=== PATIENT | male | born 1975 | race Caucasian/White ===

== ENCOUNTER 2020-10-05 23:43 | Inpatient (IN) | payer MEDICAID, SELFPAY ==
--- NOTE | 2020-10-05 01:00 | RAD_ITS ---
STUDY: X-RAY CHEST REASON FOR EXAM: Male, 45 years old. nausea and vomiting, cold symptoms for several days. TECHNIQUE: AP portable chest. 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 FINDINGS: Lungs are hyperinflated present previously. No focal infiltrates or effusions. No pneumothorax. Minimally elevated right hemidiaphragm. Normal size heart. Normal mediastinum and zach. Normal visualized pulmonary arteries. Normal visualized aortic arch and descending thoracic aorta. Normal visualized thoracic spine. Normal visualized ribs, clavicles, and shoulders. There is no demonstrated abnormality of the visualized soft tissue structures of the upper abdomen. RAD/Chest 1 View (Portable) IMPRESSION: No acute cardiopulmonary disease. Hyperinflation. Electronically Signed: Masood Tony MD at 2:04 EST , Service support ,
[2020-10-05 23:44] VITALS: BP 126/101; PULSE 106; RESP 17; TEMP 37.2; O2SAT 95; BMI 17.4
--- NOTE | 2020-10-05 23:53 | ED.DCSUM_ITS ---
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 Negative for: Blood streaks, Coffee ground, Hematemesis - Diarrhea/Melena/Hematochezia GI Symptom: - - last BM 2-3d ago; were normal then. Negative for: Diarrhea, Melena, Hematochezia Associated Symptoms: - - decreased UOP x 2d. Negative for: Dysuria, Frequency, Hematuria, Urgency Narrative: Patient presents with multitude of symptoms including abdominal pain with vomiting for several days, in addition to a cough productive occasionally of nondiscolored sputum without hemoptysis, subjective fevers/chills. He states he has felt a little short of breath today, but has a history of having had a partial lung resection due to displaced rib fracture related to trauma. He states he has had a laparotomy due to trauma as well and does not know everything that was done in his abdomen. When asked if he has had a bowel obstruction in the past, he thinks so. He denies having had COVID-19 this year that he knows of, nor has he had any known exposures to it. 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 Denies: Sweats Eyes: Denies: Visual changes - bilaterally, Diplopia ENT: Denies: Bilateral ear pain, Rhinorrhea, Sore throat Cardiovascular: Denies: Chest pain, Palpitations Respiratory: Reports: Dyspnea, Cough, Sputum. Denies: Orthopnea Gastrointestinal: Reports: Abdominal pain, Nausea, Vomiting. Denies: Diarrhea, Melena, Hematochezia Genitourinary: Denies: Dysuria, Hematuria, Frequency Musculoskeletal: Denies: Myalgias, Neck pain, Back pain, Swelling, Extremity Pain Skin: Denies: Rash, Wounds Neurological: Denies: Headache, Weakness, Numbness Physical Exam Vital Signs/Narrative: Vital Signs Temp Pulse Resp BP Pulse Ox 10/05/20 23:44 98.9 F 106 H 17 126/101 H 95 Inital Vital Signs reviewed: Yes General: Well nourished, Well developed, Cachectic, No Acute Distress Head: Normocephalic, Atraumatic Eyes: Perrl, EOMI ENT: No rhinorrhea, Dry mucous membranes Neck: Supple, Nontender, No lymphadenopathy Cardiovascular: Regular rate, Regular rhythm, No murmurs, Tachycardia - mild Respiratory: No distress, CTA bilaterally, Chest nontender Abdomen: Soft, Nondistended, Normal bowel sounds, No masses, Tender - diffusely. Negative for: Guarding, Rebound tenderness Back: Nontender, Normal Inspection. Negative for: CVA tenderness Extremities: Nontender, No edema. Negative for: Calf Tenderness Skin: Normal color, No rash, No Trauma Neurological: Alert, Oriented x3, Cranial nerves II-XII grossly intact, Normal Strength, Normal Sensation Psychological: Normal affect, Normal Mood Diagnostic/Tx/Re-eval - Rhythm Strip Rhythm Strip: Sinus Rhythm Rate: 90 Ectopy: None - EKG Initial EKG Interpretation: Sinus Rhythm, No Acute Injury Pattern, LAFB, - - motion artifact. Prior: No Prior - Medical Decision Making Radiologist called about CT, which indicates an acute small bowel obstruction with a transition point distally. We attempted to obtain the CT with IV contrast only, since patient had been vomiting quite a bit and he was thin, to enhance imaging interpretation. However, the IV which had been providing slow IV fluid without any issues infiltrated during the CT, and the entire bolus of contrast went into the soft tissues of the patient's right forearm. We put a hot compress on it, he said this felt better, I evaluated him his compartments of his forearm were soft, he has full range of motion throughout the elbow and wrist without any difficulty, paresthesias, or perfusion deficit. He does not have a compartment syndrome at this time. Unfortunately the patient did not indicate that there is any discomfort in his forearm until after the CT was completed. We decided to let radiology interpreted without the contrast, and luckily he was able to discern that there definitely is a bowel obstruction, but not necessarily whether the appendix is inflamed or not, given the streak artifact from his right hip hardware nearby. I am less suspicious that the patient has acute appendicitis, as his clinical picture does fit that of a small bowel obstruction. An NG tube was placed after pretreating the patient with Afrin and inhaled lidocaine, which helped with placement. In the ED over 300 cc of gastric fluid was withdrawn. Discussed with surgery Dr. Suazo. He will consult and request admit by medical team. Discussed with hospitalist. Since patient's IV blew, nurses attempted to put a new one in, attempting on external jugular's as well as peripheral extremity veins with no success. T herefore, after informed consent due to lack of access, central line was placed in the right subclavian vein without any complications. See the procedure note below. Procedures Procedure(s): Central line for access --patient was prepped and draped in a sterile fashion after informed consent, for triple lumen 16 cm catheter placement in the right subclavian vein. Modified Seldinger technique was used, after locally anesthetizing with a total of 4 cc of plain 1% lidocaine, finder needle found dark red nonpulsatile blood beneath the clavicle, guidewire was able to be passed without any resistance, and the triple-lumen catheter was placed over it. All 3 ports hero back dark red nonpulsatile blood and flushed easily. The catheter was sutured in place, a chlorhexidine disc was placed at the hub of the catheter against the skin, and chest x-ray confirmed good placement. ED Disposition - Plan for ED Patient: Disposition: Acute Care [facility] Diagnosis: Small bowel obstruction Referrals: Care Physician,No Primary [Primary Care Provider] -
[2020-10-06] VITALS (15 sets, daily range): BP systolic 105–137; BP diastolic 49–101; PULSE 59–110; RESP 16–24; TEMP 36.9–37.1; O2SAT 95–100; BMI 16.0; BMI 16.1
[2020-10-06] MEDS: 0.9% Normal Saline 1,000 ML 1000 ML IV (00:08)
[2020-10-06] MEDS: Ondansetron 4 MG/2 ML Vial IV (00:08)
[2020-10-06] MEDS: Morphine 4 MG/ML Syringe IV (00:08)
[2020-10-06 00:23] LABS: Absolute Lymphocyte Count 2.44 X10^3/uL (0.83-4.51); Absolute Neutrophil Count 8.2 X10^3/uL (2.0-7.7); Basophil# 0.09 X10^3/uL; Basophil% 0.7 % (0-1); Eosinophil# 0.07 X10^3/uL; Eosinophils% 0.6 % (0-5); Hematocrit 49.5 % (40-54); Hemoglobin 16.6 g/dL (13.0-16.5); Lymphocyte # 2.44 X10^3/ul (4.0); Lymphocyte % 19.9 % (19-41); Mean Corp Hgb Conc 33.5 g/dL (32-36); Mean Corpuscular Hgb 31.9 pg (27.0-32.0); Mean Corpuscular Volume 95.2 fL (80-94); Mean Platelet Vol. 9.4 fl (6.2-12.0); Monocyte# 1.43 X10^3/uL; Monocyte% 11.6 % (0-10); NRBC Flagged by Analyzer 0 % (0-5); Neutrophil # 8.22 X10^3/uL (2.7-7.7); Platelet Count 494 K/mm3 (150-450); RBC Distribution Width CV 13.3 % (11.6-14.6); RBC Distribution Width SD 46.7 fl (35.1-43.9); White Blood Count 12.3 K/mm3 (4.4-11.0)
[2020-10-06 00:43] LABS: ALB/GLOB Ratio 0.9 RATIO (0.9-2.4); AST(SGOT) 84 U/L (15-37); Alanine Aminotransfer ALT/SGPT 229 U/L (16-61); Albumin, Serum 4.4 g/dL (3.2-5.0); Alkaline Phosphatase 194 U/L (45-117); Anion Gap 9 (5-15); BUN 37 mg/dL (7-18); BUN/Creat Ratio 27.6 RATIO (10-20); Calcium,Total 9.3 mg/dL (8.5-10.1); Chloride 93 mmol/L (98-107); Creatinine, Serum 1.34 mg/dL (0.70-1.30); EST Glomerular Filtration Rate 61 mL/min (>60); Est Glom Filt Rate - Afr Amer 74 mL/min (>60); Glucose 129 mg/dL (74-106); Lipase 254 U/L (73-393); Potassium 3.7 mmol/L (3.5-5.1); Protein, Total 9.4 g/dL (6.4-8.2); Sodium Level 131 mmol/L (136-145)
--- NOTE | 2020-10-06 01:20 | NURSING ---
Pt returned from CT scan; mike reported to this RN that IV rt AC infiltrated with CT contrast. Hot pack placed on rt AC. Will monitor.
[2020-10-06] MEDS: Lidocaine 4% 5 ML Ampul 2 ML INHALATION (02:52)
[2020-10-06] MEDS: Oxymetazoline 0.05% 1 SPRAY SPRAY.BTL 2 SPRAY NASAL (02:53)
[2020-10-06] MEDS: Morphine 4 MG/ML Syringe SC (02:53)
--- NOTE | 2020-10-06 03:33 | HP.PCM_ITS ---
Problem List (1) Elevated LFTs Status: Acute (2) Acute kidney injury Status: Acute (3) Drug abuse Status: Chronic (4) Small bowel obstruction Status: Acute History of Present Illness Date of Admission: 10/06/20 Chief Complaint: Abdominal pain. The patient is a 45 year old M with past medical history as mentioned above presented to the emergency room because of abdominal pain. Her symptoms started 3 days ago with abdominal pain, mid abdominal pain, sharp pain, has been constant, 8 out of 10 in severity, not radiating, associated with nausea and vomiting and without aggravating or relieving factors. He mentioned that he has been passing flatus, last bowel movement was couple of days ago. He denied fever or chills. Apparently, he had a history of bowel obstruction in the past which was treated conservatively. He has history of trauma which ended up having partial lung resection due to displaced rib fracture as well as splenectomy back in 2012. In the emergency department, he was afebrile, slightly tachycardic, blood pressure stable, pulse ox is 96% on room air. Routine blood work was remarkable for mild leukocytosis, sodium of 131, BUN is 37, creatinine is 1.34. LFT was remarkable for bilirubin of 2.6, AST of 84 and ALT of 229, alk phos is 194. Troponin was negative. Lipase was normal. Blood alcohol level was 5. Chest x-ray showed hyperinflation, no acute findings. CT scan abdomen and pelvis with IV contrast revealed distal small bowel obstruction, small nonobstructing left kidney stone. Patient is being admitted for distal small bowel obstruction, acute kidney injury and elevated LFT. Past Medical History Past Medical History (Chronic Problems): Chronic Problems Drug abuse (Chronic) Allergies No Known Allergies Allergy (Verified 08/28/17 09:38) Home Medications: Ambulatory Orders Medication Instructions Recorded No Known/Unobtainable [No Known 08/28/17 Home Medications] Surgical History: - - Splenectomy as well as hip fracture repair in 2014 due to trauma; partial R pulm lobectomy Psychiatric History: No pertinent psych hx Lives: With Family Smoking Status: Current every day smoker Tobacco Use: Cigarettes Alcohol: None Drugs: Heroin, - - Amphetamines. - *Family History Maternal History Items: No pertinent history Paternal History Items: No pertinent history Review of Systems Constitutional: Reports: Anorexia. Denies: Chills, Fever, Weakness Eyes: Denies: Blurred vision, Double vision, Drainage, Redness HEENT: Denies: Difficulty Hearing, Dysphasia, Ear Pain, Eye Pain, Nasal Congestion, Sore Throat Cardiovascular: Denies: Chest Pain, Chest Pressure, Edema, Heaviness, Palpitations, Syncope Respiratory: Reports: Cough. Denies: Pleuritic Pain, Shortness of Breath, Sputum production, Wheezing Gastrointestinal: Reports: Abdominal Pain, Nausea, Vomiting. Denies: Constipation, Diarrhea, Melena Genitourinary: Denies: Dysuria, Frequency, Hematuria Musculoskeletal: Denies: Arm Pain, Back Pain, Foot Pain Skin: Denies: Dryness, Rash Neurological: Denies: Balance problems, Blurred vision, Double vision, Headaches, Incoordination Psychiatric: Denies: Anxiety, Depression Endocrine: Denies: Change in Body Habitus, Polydipsia, Polyuria VTE Information - Inpt Only VTE Present on Admission: No VTE Mechan Device Prophylaxis: None VTE Pharm Prophylaxis ordered?: No Patient Problems: Active and Suspected Problems Small bowel obstruction (Acute) - Physical Exam Vitals/I&O's: Vital Signs Temp Pulse Resp BP Pulse Ox 98.8 F 110 H 18 113/98 H 96 10/06/20 03:00 10/06/20 03:00 10/06/20 03:00 10/06/20 03:00 10/06/20 03:00 Oxygen Delivery Method Room Air Weight: 111 lb 8.862 oz Body Mass Index (BMI) 17.4 Intake and Output for Last 24 Hours 10/04/20 10/05/20 10/06/20 23:59 23:59 23:59 Output Total 200 / 200 Balance -200 / -200 General: Alert, Oriented x3, Cooperative, - - Cachectic. HEENT: Atraumatic, PERRLA, EOMI, Normocephalic Oral: Moist Mucosa, No Gingival or Mucosal Lesions/ Ulcerations Neck: Supple, No JVD, Negative Carotid Bruits, Trachea Midline, Thyroid Normal Size and Texture Lungs: Clear to auscultation, No wheeze, No rales, Diminished, Rhonchi Cardiovascular: Regular rate, Regular Rhythm, Normal S1, Normal S2, PMI Normal, Tachycardic Abdomen: Hypoactive Bowel Sounds, Distended, Tender, - - Minimal guarding, no rigidity. Extremities: No clubbing, No cyanosis, No edema Skin: No rashes, No breakdown Lymphatic: No Cervical, Supraclavicular, or Inguinal Adenopathy Neurological: Cranial nerves II-XII grossly intact, Motor Exam 5/5 strength throughout Psych/Mental Status: Appropriate, Flat Affect Microbiology Past 72 Hours 10/06/20 00:10 Mucosa - Nose SARS-CoV-2 Antigen (Rapid) - Final Laboratory Results 10/06/20 00:10: WBC 12.3 H, RBC 5.20, Hgb 16.6 H, Hct 49.5, MCV 95.2 H, MCH 31.9, MCHC 33.5, RDW Std Deviation 46.7 H, RDW Coeff of [place] 13.3, Plt Count 494 H, MPV 9.4, Immature Gran % (Auto) 0.200, Neut % (Auto) 67.0, Lymph % (Auto) 19.9, [place] % (Auto) 11.6 H, Eos % (Auto) 0.6, Baso % (Auto) 0.7, Absolute Neuts (auto) 8.2 H, Absolute Lymphs (auto) 2.44, Nucleated RBC % 0 10/06/20 00:10: Sodium 131 L, Potassium 3.7, Chloride 93 L, Carbon Dioxide 29.0, Anion Gap 9, BUN 37 H, Creatinine 1.34 H, Estim Creat Clear Calc 49.30, Est GFR (MDRD) Af Amer 74, Est GFR (MDRD) Non-Af 61, BUN/Creatinine Ratio 27.6 H, Glucose 129 H, Calcium 9.3, Total Bilirubin 2.60 H, AST 84 H, ALT 229 H, Alkaline Phosphatase 194 H, Troponin I < 0.015, Total Protein 9.4 H, Albumin 4.4, Globulin 5.0 H, Albumin/Globulin Ratio 0.9, Lipase 254 10/06/20 00:10: Ethyl Alcohol 5.0 Clinical Impression(s) from Imaging Studies Chest X-Ray 10/05/20 01:00 IMPRESSION: No acute cardiopulmonary disease. Hyperinflation. Electronically Signed: Masood Tony MD at 2:04 EST , Service support , Abdomen/Pelvis CT 10/06/20 23:50 IMPRESSION: Distal small bowel obstruction. Appendix not visualized. Status post splenectomy. Hyperinflation. Small nonobstructing left renal calculus. Additional nonemergent findings as above. N.B. : The above information has been verbally conveyed by Masood Tony MD to Naman Sam MD, on 10/06/2020 02:34:06 (ET). Electronically Signed: Masood Tony MD at 2:34 EST , Service support , ADDENDUM: 10/06/20 0241 IMPRESSION: Distal small bowel obstruction. Appendix not visualized. Status post splenectomy. Hyperinflation. Small nonobstructing left renal calculus. Additional nonemergent findings as above. N.B. : The above information has been verbally conveyed by Masood Tony MD to Naman Sam MD, on 10/06/2020 02:34:06 (ET). Electronically Signed: Masood Tony MD at 2:34 EST , Service support , Assessment/Plan All Active Problems Elevated LFTs (Acute) Acute kidney injury (Acute) Small bowel obstruction (Acute) This is a 45 years old male patient presented to the emergency room because of abdominal pain, with nausea and vomiting and he was found to have distal small bowel obstruction as well as acute kidney injury and elevated LFT. #1 distal small bowel obstruction: In context of history of bowel obstruction in the past few years ago. Patient had trauma that ended up having a splenectomy and partial lobectomy. CT scan abdomen and pelvis reviewed. Plan: Admit to [facility] floor, telemetry monitoring, keep on n.p.o., IV fluids, IV morphine as needed, IV Zofran and Phenergan as needed, IV Pepcid twice daily, replace electrolytes as appropriate, general surgery consult, repeat CBC and CMP tomorrow morning. #2 acute kidney injury/hyponatremia: Due to dehydration, nausea and vomiting as well as poor oral intake. Plan: IV fluids as above, input output chart, repeat BMP tomorrow morning. #3 elevated LFT: Bilirubin is 2.6, AST 84, ALT 229, alk phos is 194. No signi ficant tenderness on the right upper quadrant. CT scan revealed normal gallbladder. Plan: Ultrasound gallbladder. #4 drug abuse: Patient has been snorting heroin and amphetamines. He said he did not use for several days. #5 tobacco abuse: NicoDerm patch if desired. #6 DVT prophylaxis: Low risk patient, no prophylaxis indicated. This note was generated with [employer] dictation software. It may contain incorrect words, spelling, and punctuation that were not noted in checking the note before signing. Inpatient E&M: 59671 Init Hosp L3
--- NOTE | 2020-10-06 05:00 | RAD_ITS ---
STUDY: X-RAY - ABDOMEN/PELVIS REASON FOR EXAM: Male, 45 years old. Nasogastric tube placement. TECHNIQUE: AP supine upper abdomen. COMPARISON: August 29, 2017. CT abdomen and pelvis October 06, 2020. FINDINGS: Nasogastric tube tip in the left upper quadrant slightly below the left hemidiaphragm in the proximal gastric fundus. Right-sided central line tip in the superior vena cava. Dilated loops of small bowel compatible with a known small bowel obstruction. There is no demonstrated free abdominal air. The visualized liver, spleen and kidneys are grossly normal in size and morphology. Normal soft tissue structures. Normal visualized osseous structures. RAD/Abdomen Single View (Portable) IMPRESSION: Nasogastric tube tip in the proximal gastric fundus satisfactory for suctioning. Small bowel obstruction. Electronically Signed: Masood Tony MD at 5:56 EST , Service support ,
--- NOTE | 2020-10-06 05:07 | RAD_ITS ---
STUDY: X-RAY CHEST REASON FOR EXAM: Male, 45 years old. Line placement. TECHNIQUE: AP portable chest. COMPARISON: October 06, 2020 at 12:56 AM. Abdomen August 28, 2017. FINDINGS: Enteric tube tip below left hemidiaphragm and at least in the gastric fundus. Right-sided central line with the tip in the lower superior vena cava. No pneumothorax. Lungs are hyperinflated. No focal infiltrates or effusions. Blunting of the right costophrenic angle probably representing pleural scar. Normal size heart. Normal mediastinum and zach. Normal visualized pulmonary arteries. Normal visualized aortic arch and descending thoracic aorta. Normal visualized thoracic spine. Normal visualized ribs, clavicles, and shoulders. There is no demonstrated abnormality of the visualized soft tissue structures of the upper abdomen. RAD/CXR for Line Placement IMPRESSION: Support line and support tube in their expected locations. No pneumothorax. Hyperinflation. Electronically Signed: Masood Tony MD at 5:52 EST , Service support ,
--- NOTE | 2020-10-06 05:25 | NURSING ---
Per Gregorio CUNNINGHAM in ER: Triple lumen central line placed & it is ok to use per ER doc. NG placed & it is also ok to use.
--- NOTE | 2020-10-06 05:36 | US_ITS ---
STUDY: ABDOMINAL ULTRASOUND - RIGHT UPPER QUADRANT REASON FOR VISIT: Male, 45 years old ELEVATED LFTS TECHNIQUE: Ultrasound evaluation of the right upper quadrant was performed with real-time and static otoole-scale imaging. TECHNICAL QUALITY: Adequate. COMPARISON: None. FINDINGS: Liver: The liver measures 11.3 cm. There is normal echogenicity of the liver. The bile ducts are within normal limits. There is hepatic color flow. The direction of portal flow is hepatopetal. There is no demonstrated mass lesion. Gallbladder: Normal distended gallbladder. The gallbladder wall measures 3.0 mm. There is a negative sonographic Mcarthur''s sign. There is no pericholecystic fluid. There are no gallstones. Common Bile Duct (C.B.D.): The common bile duct measures 4 mm. Pancreas: There is nonvisualization of the pancreas due to overlying bowel gas. Right Kidney: Normal size of the right kidney. The right kidney measures 9.1 cm x 5 cm x 4.9 cm. Normal renal cortex. The right cortex measures 1.0 cm. There is no demonstrated renal mass or cyst. There is no right hydronephrosis. US/Gallbladder IMPRESSION: Normal right upper quadrant ultrasound examination. Electronically Signed: Abdulaziz Myles, at 8:20 EST , Service support ,
[2020-10-06] MEDS: Lactated Ringers 1,000 ML 100 ML IV ×2 (06:15→15:32)
[2020-10-06] MEDS: 0.9% Saline Lock 10 ML Syringe IV ×3 (06:26→21:31)
[2020-10-06] MEDS: Famotidine 200 MG/20 ML MDV 20 MG in 0.9% Normal Saline (Pres. free 8 ML 300 MG IV ×2 (06:26→21:31)
[2020-10-06] MEDS: Morphine 2 MG/ML Syringe IV ×4 (07:44→21:31)
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
[2020-10-06 12:01] LABS: Bacteria 0 SEEN /hpf (None Seen); Mucous, Urine 0 SEEN /hpf (<or=2+); Squamous Epithelial Cells - UA 0 SEEN /hpf (0-5)
--- NOTE | 2020-10-06 12:02 | NURSING ---
called sister Crystal and provided pt update. [phone]
[2020-10-06 12:16] LABS: Color, Urine Yellow (Yellow); Glucose, Dipstick Normal (Normal); Ketone-Dipstick 50 mg/dl (Negative); Leukocyte Esterase-Dipstick 25 /ul (Negative); Nitrite-Dipstick Negative (Negative); Occult Blood-Urine 150 /ul (Negative); Protein-Dipstick 30 mg/dl (Negative); Urine Clarity Clear (Clear); Urine Urobilinogen 1 mg/dl (Normal)
[2020-10-06 12:19] LABS: Red Blood Cells-Urine 5-10 SEEN /hpf (0-5); Urine Bilirubin Dipstick 1 mg/dL (Negative); White Blood Cells 0-5 SEEN /hpf (0-5)
--- NOTE | 2020-10-06 12:30 | CASEMGMT ---
OCTAVIO GILLIAM assessment: Face to Face with patient for initial transition planning/care coordination assessment. OCTAVIO GILLIAM introduced self and role at [facility], pt voices understanding and consents to assessment at this time but is lying in bed with sheet over his head. Pt is in no distress at this time. Pt is A/Ox4 at this time and answers all questions appropriately at this time. Care providers, pharmacy, and demographics verified at this time. Presentation: Pt feeling unwell for several days w/ n/v and cold sx Admitting dx: distal small bowel obstruction, TAMARA PCP: Pt states does not have PCP and declines PCP list at this time. Specialists: Pt states no current specialists. Preferred Pharmacy: [facility] Insurance: [employer] 360 Prescription Benefit: [employer] Living Will/HPOA: Pt states does not have LW/HPOA and declines AD info at this time. LNOK: Estiven Fisher, father Living Arrangements: Pt states lives with father in 1 story home and states no concerns at home at this time. Pt states is independent with ADL's. Transportation: Pt states does not drives but states no transportation concerns at this time. Pt states family/friends drive him. DME/HHC: Pt states no current DME or need for any at this time. Pt states no hx HHC or SNF in the past. Pt states no concerns with going home at time of discharge. Pt states is on disability. Pt states smokes about a pack of cigarettes daily and does not drink ETOH. Pt states does use meth/heroin and last used several days ago. Pt declines to speak with anyone or to get any resources for his drug abuse at this time. Pt states no further concerns/needs at this time. CM to follow for any further discharge planning/needs. Advised pt to ask for CM if any further questions/concerns/needs arise, voices understanding. Pt Goal: Home Plan[place] OCTAVIO GILLIAM
--- NOTE | 2020-10-06 12:57 | NT.THERAPY_ITS ---
Nutrition Therapy Report - History Nutrition Services has been consulted to:: Manage nutrient details of diet order Current diet / nutrition support order:: NPO x day #1 today except ice chips and candy - Anthropometric Measurements Height:: 5 ft 7 in Weight:: 46.5 kg Body Mass Index (BMI):: 16.0 - Relevant Labs Relevant Labs:: WBC 12.3 K/mm3 (4.4-11.0) H 10/06/20 00:10 Hgb 16.6 g/dL (13.0-16.5) H 10/06/20 00:10 MCV 95.2 fL (80-94) H 10/06/20 00:10 RDW Std Deviation 46.7 fl (35.1-43.9) H 10/06/20 00:10 Plt Count 494 K/mm3 (150-450) H 10/06/20 00:10 [place] % (Auto) 11.6 % (0-10) H 10/06/20 00:10 Absolute Neuts (auto) 8.2 X10^3/uL (2.0-7.7) H 10/06/20 00:10 Sodium 131 mmol/L (136-145) L 10/06/20 00:10 Chloride 93 mmol/L (98-107) L 10/06/20 00:10 BUN 37 mg/dL (7-18) H 10/06/20 00:10 Creatinine 1.34 mg/dL (0.70-1.30) H 10/06/20 00:10 BUN/Creatinine Ratio 27.6 RATIO (10-20) H 10/06/20 00:10 Glucose 129 mg/dL (74-106) H 10/06/20 00:10 Total Bilirubin 2.60 mg/dL (0.20-1.00) H 10/06/20 00:10 AST 84 U/L (15-37) H 10/06/20 00:10 ALT 229 U/L (16-61) H 10/06/20 00:10 Alkaline Phosphatase 194 U/L (45-117) H 10/06/20 00:10 Total Protein 9.4 g/dL (6.4-8.2) H 10/06/20 00:10 Globulin 5.0 g/dL (2.2-4.2) H 10/06/20 00:10 - Assessment Food / Nutrition-Related History:: Pt difficult to interview and not co- operative with answering questions. 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 Wt loss is significant~6-7% down x past 2-4 weeks in addition to poor intake and BMI 16.1. Unable to perforn NFPA due to pt all covered up and unwilling to co-operate. 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 Evidence of Malnutrition Exists:: Yes Severe PCM:: Acute Illness - Nutrition Intervention Nutrition Prescription:: Estimated nutrition needs for repletion~7868-6483 kcal and ~60-70 gm protein per day. - Food / Nutrient Delivery Interventions Summary of nutrition intervention:: Pt currently NPO but, will require oral nutr ition supplements as diet advanced; consider parenteral nutrition support in view of malnutrition criteria if unable to advance diet in 24-48 hours. Nutrition support ordered as / adjusted to:: No nutrition support at this time; consider Parenteral Nutrition Support if unable to advance PO nutrition in next 24-48 hours. Nutrition education provided?: No - pt unwilling - MNT Monitoring Further MNT monitoring and evaluation required?: Yes MNT Follow-up in:: 3-5 days
--- NOTE | 2020-10-06 13:38 | CASEMGMT ---
Social Work SW met with pt in room to discuss substance abuse. Pt head covered in blankets upon entrance but pt willing to sit up in bed and speak with SW. Pt states he is disabled and lives with his father, brother and sister. Pt states he also has a son who is 21 and lives in the home now and then. Pt stating he can care for himself and although he does not drive, he has no problem finding transportation when needed. SW inquired about alcohol uses and pt denies any alcohol use. SW then inquired about drug use. Pt confirms he uses heroin and meth daily with last use a day prior to admission. Pt denies using a recovery programs in the past. Pt stating he wants to stop using drugs, he realizes they are not good for him, use up his money and mess with his head. Pt informing this worker he [facility] and he would like to change his drug use habits. Pt stating he would like his son to quite as well and that he needs to lead by example. SW offered assistance with finding a program to assist with cessation and pt adamantly denies need for assistance. SW attempted to review with pt need for support and assistance to deal with addiction and pt continues to deny stating he watched his friends go through rehab and start using as soon as they came out. SW again attempted to educate that sometimes recovery requires multiple attempts with rehab. Pt plans to stop using heroin and meth on his own and does not feel as though he will benefit from assistance. SW offered resources on rehabilitation programs and pt did accept them but denies SW make appointment for him with a program. Pt denies any further SW needs at this time. GHAZALA Hill
--- NOTE | 2020-10-06 23:50 | CT_ITS ---
STUDY: CT ABDOMEN AND PELVIS WITH CONTRAST REASON FOR EXAM: Male, 45 years old. Diffuse abdominal pain. Fever and chills for several days. Nausea and vomiting. History of lung cancer. RADIATION DOSAGE (If Supplied By Facility): CTDIvol = ( 16.23 ) mGy, DLP = ( 302.70 ) mGycm TECHNIQUE: Transaxial images were obtained from the dome of the diaphragm to the symphysis pubis without oral contrast. IV 20mL Isovue-370 was administered. Sagittal and coronal images were reconstructed. As per discussion with referring clinician there was infiltration of the intravenous access resulting in limited intravenous contrast for this study. Individualized dose optimization techniques were used for this CT. COMPARISON: August 28, 2017. FINDINGS: The lungs are hyperinflated. The visualized portions of the heart are within normal limits. Normal liver. Normal gallbladder and extrahepatic biliary system. Spleen absent compatible with history of splenectomy. Normal pancreas. Normal bilateral adrenal glands. Normal right kidney. 2 mm nonobstructing left renal calculus. Evaluation of solid organs is limited without optimal intravenous contrast. Normal visualized stomach. Fluid-filled loops of small bowel some dilated to 3.9 cm compatible with a distal small bowel obstruction. Transition zone right hemipelvis. Normal colon. Appendix is not definitively identified. Streak artifact in the pelvis as well as lack of oral contrast limits evaluation of the bowel. Normal abdominal aorta. Normal inferior vena cava. Normal retroperitoneum. No intra-abdominal free air. Normal urinary bladder. Prostate gland is not enlarged. Normal abdominal wall. Postoperative changes of ORIF old pelvic fractures. Multihole plate and screws right hemipelvis. Intramedullary tung and compression screw right femur. Heterotopic bone formation right hip. Transversely oriented screws left sacroiliac joint. Old fracture right inferior pubic ramus. Old right posterior inferior rib fracture. CT/Abdomen/Pelvis W IV Cont ONLY IMPRESSION: Distal small bowel obstruction. Appendix not visualized. Status post splenectomy. Hyperinflation. Small nonobstructing left renal calculus. Additional nonemergent findings as above. N.B. : The above information has been verbally conveyed by Masood Tony MD to Naman Sam MD, on 10/06/2020 02:34:06 (ET). Electronically Signed: Masood Tony MD at 2:34 EST , Service support ,
[2020-10-07] VITALS (8 sets, daily range): BP systolic 103–112; BP diastolic 61–66; PULSE 60–81; RESP 18; TEMP 36.6–37; O2SAT 96–99
[2020-10-07] MEDS: Morphine 2 MG/ML Syringe IV (00:33)
[2020-10-07] MEDS: Lactated Ringers 1,000 ML 100 ML IV (00:37)
--- NOTE | 2020-10-07 01:59 | NURSING ---
covid 19 emergency charting in effect.
[2020-10-07 05:45] LABS: Absolute Lymphocyte Count 2.47 X10^3/uL (0.83-4.51); Absolute Neutrophil Count 2.5 X10^3/uL (2.0-7.7); Basophil# 0.03 X10^3/uL; Basophil% 0.5 % (0-1); Eosinophil# 0.03 X10^3/uL; Eosinophils% 0.5 % (0-5); Hematocrit 38.3 % (40-54); Lymphocyte # 2.47 X10^3/ul (4.0); Lymphocyte % 39.6 % (19-41); Mean Corp Hgb Conc 33.9 g/dL (32-36); Mean Corpuscular Hgb 31.3 pg (27.0-32.0); Mean Corpuscular Volume 92.1 fL (80-94); Mean Platelet Vol. 9.3 fl (6.2-12.0); Monocyte# 1.18 X10^3/uL; Monocyte% 18.9 % (0-10); NRBC Flagged by Analyzer 0 % (0-5); Neutrophil # 2.51 X10^3/uL (2.7-7.7); Neutrophil % 40.3 % (47-70); Platelet Count 382 K/mm3 (150-450); RBC Distribution Width CV 12.9 % (11.6-14.6); RBC Distribution Width SD 43.8 fl (35.1-43.9); Red Blood Count 4.16 M/mm3 (4.6-6.2); White Blood Count 6.2 K/mm3 (4.4-11.0)
[2020-10-07 06:33] LABS: ALB/GLOB Ratio 0.8 RATIO (0.9-2.4); AST(SGOT) 54 U/L (15-37); Alanine Aminotransfer ALT/SGPT 125 U/L (16-61); Albumin, Serum 3.1 g/dL (3.2-5.0); Alkaline Phosphatase 122 U/L (45-117); Anion Gap 7 (5-15); BUN 23 mg/dL (7-18); BUN/Creat Ratio 42.1 RATIO (10-20); Calcium,Total 8.3 mg/dL (8.5-10.1); Chloride 101 mmol/L (98-107); Creatinine, Serum 0.55 mg/dL (0.70-1.30); EST Glomerular Filtration Rate 172 mL/min (>60); Estimated Creatinine Clearance 110.38 ml/min; Globulin 3.8 g/dL (2.2-4.2); Glucose 95 mg/dL (74-106); Potassium 4.1 mmol/L (3.5-5.1); Protein, Total 6.9 g/dL (6.4-8.2); Sodium Level 133 mmol/L (136-145)
[2020-10-07 06:34] LABS: Est Glom Filt Rate - Afr Amer 208 mL/min (>60)
--- NOTE | 2020-10-07 07:45 | PCM.PN.HOSP ---
Patient Problems: Active and Suspected Problems Elevated LFTs (Acute) Acute kidney injury (Acute) Small bowel obstruction (Acute) Subjective: Patient laying in the medical surgical bed, notes overnight he did have continued onset flatus and bowel movement x2 with improvement of his abdominal discomfort. Patient eager for initiation of clears this morning and following discussions with general surgery allowed. Patient denies fevers, chills, nausea, emesis, worsened abdominal pain, chest pain or dyspnea. Objective: Physical Examination: General: awake, alert, oriented x 3 and cooperative, seated upright in the medical surgical bed, no acute distress, notes improved. Skin: normal color, turgor, no icterus, cyanosis. HEENT: AT/NC, EOMI, PERRLA, moderately dry MM. Lungs: Diminished breath sounds, greater bases, moderate effort, no rales, ronchi or wheezing. Heart: Regular rate and rhythm; no gallop, rub audible. Abdomen: soft, cachectic habitus, improved abdominal exam with normalizing bowel sounds, no significant tenderness palpation, nondistended. Extremities: no cyanosis, clubbing, or edema. Neurological: patient awake, alert, oriented as noted; cognitive function intact; pupils equally reactive to light and accomodation; cranial nerves II-XII grossly normal, moving all 4 extremities, no focal deficits, strength improved, moderately global decreased. Psychiatric: affect appears fatigued otherwise normal, no acute evidence of depressive or anxiety feelings. Vitals/I&O's: Vital Signs Temp Pulse Resp BP Pulse Ox 98.6 F 64 18 112/66 96 10/07/20 03:32 10/07/20 04:00 10/07/20 03:32 10/07/20 03:32 10/07/20 07:27 Oxygen Delivery Method Room Air Weight: 102 lb 8.239 oz Body Mass Index (BMI) 16.0 Intake and Output for Last 24 Hours 10/05/20 10/06/20 10/07/20 23:59 23:59 23:59 Intake Total 1994. / 1308.33 / 1308.33 Output Total 350 / 350 Balance 1645.00 / 1645.00 1308.33 / 1308.33 Microbiology Past 72 Hours 10/06/20 00:10 Mucosa - Nose SARS-CoV-2 Antigen (Rapid) - Final Laboratory Results 10/06/20 11:50: Urine Color Yellow, Urine Clarity Clear, Urine pH 5.0, Ur Specific [place] 1.020, Urine Protein 30 H, Urine Glucose (UA) Normal, Urine Ketones 50 H, Urine Occult Blood 150 H, Urine Nitrite Negative, Urine Bilirubin 1 H, Urine Urobilinogen 1 H, Ur Leukocyte Esterase 25 H, Urine RBC 5-10 SEEN, Urine WBC 0-5 SEEN, Ur Squamous Epith Cells 0 SEEN, Urine Bacteria 0 SEEN, Urine Mucus 0 SEEN 10/07/20 05:30: WBC 6.2, RBC 4.16 L, Hgb 13.0, Hct 38.3 L, MCV 92.1, MCH 31.3, MCHC 33.9, RDW Std Deviation 43.8, RDW Coeff of [place] 12.9, Plt Count 382, MPV 9.3, Immature Gran % (Auto) 0.200, Neut % (Auto) 40.3 L, Lymph % (Auto) 39.6, [place] % (Auto) 18.9 H, Eos % (Auto) 0.5, Baso % (Auto) 0.5, Absolute Neuts (auto) 2.5, Absolute Lymphs (auto) 2.47, Nucleated RBC % 0 10/07/20 05:30: Sodium 133 L, Potassium 4.1, Chloride 101, Carbon Dioxide 25.0, Anion Gap 7, BUN 23 H, Creatinine 0.55 L, Estim Creat Clear Calc 110.38, Est GFR (MDRD) Af Amer 208, Est GFR (MDRD) Non-Af 172, BUN/Creatinine Ratio 42.1 H, Glucose 95, Calcium 8.3 L, Total Bilirubin 2.60 H, AST 54 H, ALT 125 H, Alkaline Phosphatase 122 H, Total Protein 6.9, Albumin 3.1 L, Globulin 3.8, Albumin/Globulin Ratio 0.8 L Current Medications Lactated Ringer's () 1,000 mls @ 100 mls/hr IV .Q10H [facility] Last Admin: 10/07/20 00:37 Dose: 100 mls/hr Documented by: Famotidine 20 mg/ Sodium (Chloride) 10 mls @ 300 mls/hr IV Q12 [facility] Last Infusion: 10/06/20 21:39 Dose: Infused Documented by: Sodium Chloride () 250 mls @ 15 mls/hr IV .[id number] PRN PRN Reason: Saline Flush Sodium Chloride () 250 mls @ 15 mls/hr IV .[id number] PRN PRN Reason: Additional IVPB Infusion Morphine Sulfate (Morphine 2 Mg/Ml Syringe) 2 mg IV Q3H PRN PRN PRN Reason: Pain Score 6-10 Last Admin: 10/07/20 00:33 Dose: 2 mg Documented by: Ondansetron HCl (Ondansetron 4 Mg/2 Ml Vial) 4 mg IV Q8H PRN PRN PRN Reason: NAUSEA/VOMITING Promethazine HCl (Promethazine 25 Mg/Ml Syringe) 6.25 mg IV Q6H PRN PRN PRN Reason: NAUSEA/VOMITING Sodium Chloride (0.9% Saline Lock 10 Ml Syringe) 10 - 40 ml IV UD PRN PRN Reason: SALINE FLUSH Last Admin: 10/06/20 21:31 Dose: 10 ml Documented by: NATI Vital Signs/Narrative: Vital Signs Pulse Pulse Ox 10/07/20 07:27 96 10/07/20 04:00 64 Medical Necessity - Tobacco Use Smoking Status: Current every day smoker Tobacco Use: Cigarettes Assessment/Plan All Active Problems Elevated LFTs (Acute) Acute kidney injury (Acute) Small bowel obstruction (Acute) The patient is a 45 y/o M w/ PMHx: Hx Polysubstance abuse (Heroin, amphetamines), Tobacco use, Chronic severe protein calorie malnutrition, Chronically elevated LFTs with suspected underlying Hepatitis C who presented to the [facility] ED on 10/06/20 with 3 days of worsening mid abdominal discomfort, sharp, constant, 8 out of 10 with associated nausea, emesis and abdominal distention. 1. Abdominal pain, nausea, emesis secondary to acute distal small bowel obstruction: Initial ED evaluation with evidence of small bowel obstruction, follow-up CT with distal small bowel obstruction verified, patient admitted to medical surgical floor, general surgery consulted, initially maintained n.p.o. status on IV famotidine with bowel rest, as needed pain and antiemetic regimen, 10/06/2020 evening had onset of bowel movements and flatus, 10/07/2020 per surgery clearance allowance of initiation of diet with advancement given clinical resolution of bowel obstruction. If patient able to tolerate transition from clears to full liquids with plan discharge to home with slow diet advancement with PCP follow-up. 2. Acute on chronic elevated LFTs, improving: Admission total bilirubin 2.60, AST/ALT 84/229, follow-up improving with AST/ALT 54/125, unremarkable right upper quadrant gallbladder ultrasound, CT abdomen and pelvis as noted with no acute liver findings, likely secondary to underlying hepatitis C given polysubstance abuse, declined testing once discussed, encourage continued outpatient follow-up with PCP as suspected underlying history. 3. Hyponatremia, mild, hypovolemic: Patient sodium 131, likely secondary to hypovolemia with GI losses secondary to #1, judiciously hydrated, repeat improving, encourage continued appropriate oral intake at discharge with follow-up labs with outpatient PCP follow-up. 4. Polysubstance abuse: Patient with heroin and amphetamine usage, encouraged clean status, encourage consideration for acute withdrawal treatment, complicates presentation given pain medication usage, given resolution will discontinue IV narcotic therapy, at discharge will defer oral usage given resolution, encouraged allowance of HIV and hepatitis panel. 5. Tobacco Abuse: Encouraged cessation, inpatient consultation per RT, NR if desired. 6. DVT prophylaxis: Low risk for admission hospitalist, not on chemoprophylaxis. Inpatient E&M: [id number] Subs Hosp L2
--- NOTE | 2020-10-07 08:59 | PCM.PN.SRG ---
Patient Problems: Active and Suspected Problems Elevated LFTs (Acute) Acute kidney injury (Acute) Small bowel obstruction (Acute) Subjective: Patient had a large bowel movement. Abdomen feels much better. Objective: Diminished soft nondistended - Physical Exam Vitals/I&O's: Vital Signs Temp Pulse Resp BP Pulse Ox 98.6 F 64 18 112/66 96 10/07/20 03:32 10/07/20 04:00 10/07/20 03:32 10/07/20 03:32 10/07/20 07:27 Oxygen Delivery Method Room Air Weight: 102 lb 8.239 oz Body Mass Index (BMI) 16.0 Intake and Output for Last 24 Hours 10/05/20 10/06/20 10/07/20 23:59 23:59 23:59 Intake Total 1994. / 1308.33 / 1308.33 Output Total 350 / 350 Balance 1645.00 / 1645.00 1308.33 / 1308.33 Microbiology Past 72 Hours 10/06/20 00:10 Mucosa - Nose SARS-CoV-2 Antigen (Rapid) - Final Laboratory Results 10/06/20 11:50: Urine Color Yellow, Urine Clarity Clear, Urine pH 5.0, Ur Specific [place] 1.020, Urine Protein 30 H, Urine Glucose (UA) Normal, Urine Ketones 50 H, Urine Occult Blood 150 H, Urine Nitrite Negative, Urine Bilirubin 1 H, Urine Urobilinogen 1 H, Ur Leukocyte Esterase 25 H, Urine RBC 5-10 SEEN, Urine WBC 0-5 SEEN, Ur Squamous Epith Cells 0 SEEN, Urine Bacteria 0 SEEN, Urine Mucus 0 SEEN 10/07/20 05:30: WBC 6.2, RBC 4.16 L, Hgb 13.0, Hct 38.3 L, MCV 92.1, MCH 31.3, MCHC 33.9, RDW Std Deviation 43.8, RDW Coeff of [place] 12.9, Plt Count 382, MPV 9.3, Immature Gran % (Auto) 0.200, Neut % (Auto) 40.3 L, Lymph % (Auto) 39.6, [place] % (Auto) 18.9 H, Eos % (Auto) 0.5, Baso % (Auto) 0.5, Absolute Neuts (auto) 2.5, Absolute Lymphs (auto) 2.47, Nucleated RBC % 0 10/07/20 05:30: Sodium 133 L, Potassium 4.1, Chloride 101, Carbon Dioxide 25.0, Anion Gap 7, BUN 23 H, Creatinine 0.55 L, Estim Creat Clear Calc 110.38, Est GFR (MDRD) Af Amer 208, Est GFR (MDRD) Non-Af 172, BUN/Creatinine Ratio 42.1 H, Glucose 95, Calcium 8.3 L, Total Bilirubin 2.60 H, AST 54 H, ALT 125 H, Alkaline Phosphatase 122 H, Total Protein 6.9, Albumin 3.1 L, Globulin 3.8, Albumin/Globulin Ratio 0.8 L Current Medications Famotidine (Famotidine 20 Mg Tablet) 20 mg PO BID JEFFREY Lactated Ringer's () 1,000 mls @ 100 mls/hr IV .Q10H JEFFREY Last Admin: 10/07/20 00:37 Dose: 100 mls/hr Documented by: Sodium Chloride () 250 mls @ 15 mls/hr IV .[id number] PRN PRN Reason: Saline Flush Sodium Chloride () 250 mls @ 15 mls/hr IV .[id number] PRN PRN Reason: Additional IVPB Infusion Morphine Sulfate (Morphine 2 Mg/Ml Syringe) 2 mg IV Q3H PRN PRN PRN Reason: Pain Score 6-10 Last Admin: 10/07/20 00:33 Dose: 2 mg Documented by: Ondansetron HCl (Ondansetron 4 Mg/2 Ml Vial) 4 mg IV Q8H PRN PRN PRN Reason: NAUSEA/VOMITING Promethazine HCl (Promethazine 25 Mg/Ml Syringe) 6.25 mg IV Q6H PRN PRN PRN Reason: NAUSEA/VOMITING Sodium Chloride (0.9% Saline Lock 10 Ml Syringe) 10 - 40 ml IV UD PRN PRN Reason: SALINE FLUSH Last Admin: 10/06/20 21:31 Dose: 10 ml Documented by: Medical Necessity - Tobacco Use Smoking Status: Current every day smoker Tobacco Use: Cigarettes Assessment/Plan All Active Problems Elevated LFTs (Acute) Acute kidney injury (Acute) Small bowel obstruction (Acute) Okay to be discharged from surgery standpoint He can follow-up with his primary care doctor
--- NOTE | 2020-10-07 09:29 | DCINST_ITS ---
- Discharge Diagnoses Current Active Problems: Current Active and Chronic Problems Acute Small Bowel Obstruction Elevated LFTs, acute on chronic secondary to #1 TAMARA secondary to #1 Acute Hyponatremia, mild, secondary to #1, hypovolemic History of Polysubstance abuse, possible Hepatitis C Severe Protein Calorie Malnutrition Tobacco use You will use the following diet at home:: Other - Advise continued clears to full liquids over the course of the next 24 to 48 hours and slow advancement to regular diet. Advise low fat/low sugar intake. Discharge Activity: Return to Normal Activity - Encourage routine activity and movement to assist with bowel movement. Call your doctor if you observe: Fever of 101 or Higher, Inability to urinate, Inability to have a bowel movement, Shortness of breath, Dizziness, Fainting spells, Chest pain, Uncontrolled pain Instructions: Small Bowel Obstruction Additional Instructions: Strongly recommend avoidance of any routine opiate usage as this will contribute greatly to constipation. Maintain appropriate healthy water intake as well. Allergies/Adverse Reactions: Allergies No Known Allergies Allergy (Verified 08/28/17 09:38) Medications to take at Discharge Psyllium [Metamucil] 1 packet PO DAILY #30 packet 10/07/20 The following prescriptions were given: Psyllium [Metamucil] 1 packet PO DAILY #30 packet Transmission Status: Pending to [facility]/pharmacy #[id number] Primary Care Physician: Care Physician,No Primary [Primary Care Provider] - Please follow up with your Primary Care Physician in: Please establish and follow-up with PCP within 3-5 days to review admission Test Results: Test results from this visit will be discussed in further detail at your follow- up appointment, if applicable. Please Follow Up With: Elio Suazo MD When: May contact General surgeon office if recurrent symptoms or concerns. Proposed Discharge Date: 10/07/20
--- NOTE | 2020-10-07 09:36 | DS.PCM_ITS ---
Discharge Date and Diagnosis - Problem List Patient Problems: Active and Suspected Problems Elevated LFTs (Acute) Acute kidney injury (Acute) Small bowel obstruction (Acute) Date of Admission: 10/06/20 Date of Discharge: 10/07/20 - Primary Discharge Diagnosis Acute Problems: Active Problems 1. Abdominal pain, nausea, emesis secondary to acute distal small bowel obstruction 2. Acute on chronic elevated LFTs, improving, likely secondary to #1 and suspected underlying hepatitis C 3. Hyponatremia, mild, hypovolemic, secondary to GI losses with #1 4. Polysubstance abuse 5. Tobacco Abuse 6. Severe protein calorie malnutrition evidenced per BMI 16, obvious muscle and fat loss - Secondary Discharge Diagnosis Chronic Problems: Chronic Problems Drug abuse (Chronic) Hospital Course and Treatment Dr. uSazo General Surgery Operations: None Procedures: None Summary of Care Provided: The patient is a 45 y/o M w/ PMHx: Hx Polysubstance abuse (Heroin, amphetamines), Tobacco use, Chronic severe protein calorie malnutrition, Chronically elevated LFTs with suspected underlying Hepatitis C who presented to the [facility] ED on 10/06/20 with 3 days of worsening mid abdominal discomfort, sharp, constant, 8 out of 10 with associated nausea, emesis and abdominal distention. Initial ED evaluation with evidence of small bowel obstruction, follow-up CT with distal small bowel obstruction verified, patient admitted to medical surgical floor, general surgery consulted, initially maintained n.p.o. status on IV famotidine with bowel rest, as needed pain and antiemetic regimen, 10/06/2020 evening had onset of bowel movements and flatus, 10/07/2020 per surgery clearance allowance of initiation of diet with advancement given clinical resolution of bowel obstruction. Admission total bilirubin 2.60, AST/ALT 84/229, follow-up improving with AST/ALT 54/125, unremarkable right upper quadrant gallbladder ultrasound, CT abdomen and pelvis as noted with no acute liver findings, likely secondary to underlying hepatitis C given polysubstance abuse, declined testing once discussed, encourage continued outpatient follow-up with PCP as suspected underlying history. Patient sodium 131, likely secondary to hypovolemia with GI losses secondary to #1, judiciously hydrated, repeat improving, encourage continued appropriate oral intake at discharge with follow- up labs with outpatient PCP follow-up. Given patient clinical improvement with resolution of small distal bowel obstruction, quicker than clinically expected and tolerating diet patient appropriate for discharge to home per General Surgery agreement. Patient Problems: Active and Suspected Problems Elevated LFTs (Acute) Acute kidney injury (Acute) Small bowel obstruction (Acute) - Physical Exam Vitals/I&O's: Vital Signs Temp Pulse Resp BP Pulse Ox 98.6 F 64 18 112/66 96 10/07/20 03:32 10/07/20 04:00 10/07/20 03:32 10/07/20 03:32 10/07/20 07:27 Oxygen Delivery Method Room Air Weight: 102 lb 8.239 oz Body Mass Index (BMI) 16.0 Intake and Output for Last 24 Hours 10/05/20 10/06/20 10/07/20 23:59 23:59 23:59 Intake Total 1994. / 1994. 1308.33 / 1308.33 Output Total 350 / 350 Balance 1645.00 / 1645.00 1308.33 / 1308.33 Microbiology Past 72 Hours 10/06/20 00:10 Mucosa - Nose SARS-CoV-2 Antigen (Rapid) - Final Laboratory Results 10/06/20 11:50: Urine Color Yellow, Urine Clarity Clear, Urine pH 5.0, Ur Specific [place] 1.020, Urine Protein 30 H, Urine Glucose (UA) Normal, Urine Ketones 50 H, Urine Occult Blood 150 H, Urine Nitrite Negative, Urine Bilirubin 1 H, Urine Urobilinogen 1 H, Ur Leukocyte Esterase 25 H, Urine RBC 5-10 SEEN, Urine WBC 0-5 SEEN, Ur Squamous Epith Cells 0 SEEN, Urine Bacteria 0 SEEN, Urine Mucus 0 SEEN 10/07/20 05:30: WBC 6.2, RBC 4.16 L, Hgb 13.0, Hct 38.3 L, MCV 92.1, MCH 31.3, MCHC 33.9, RDW Std Deviation 43.8, RDW Coeff of [place] 12.9, Plt Count 382, MPV 9.3, Immature Gran % (Auto) 0.200, Neut % (Auto) 40.3 L, Lymph % (Auto) 39.6, [place] % (Auto) 18.9 H, Eos % (Auto) 0.5, Baso % (Auto) 0.5, Absolute Neuts (auto) 2.5, Absolute Lymphs (auto) 2.47, Nucleated RBC % 0 10/07/20 05:30: Sodium 133 L, Potassium 4.1, Chloride 101, Carbon Dioxide 25.0, Anion Gap 7, BUN 23 H, Creatinine 0.55 L, Estim Creat Clear Calc 110.38, Est GFR (MDRD) Af Amer 208, Est GFR (MDRD) Non-Af 172, BUN/Creatinine Ratio 42.1 H, Glucose 95, Calcium 8.3 L, Total Bilirubin 2.60 H, AST 54 H, ALT 125 H, Alkaline Phosphatase 122 H, Total Protein 6.9, Albumin 3.1 L, Globulin 3.8, Albumin/Globulin Ratio 0.8 L Current Medications Famotidine (Famotidine 20 Mg Tablet) 20 mg PO BID JEFFREY Lactated Ringer's () 1,000 mls @ 100 mls/hr IV .Q10H JEFFREY Last Admin: 10/07/20 00:37 Dose: 100 mls/hr Documented by: Sodium Chloride () 250 mls @ 15 mls/hr IV .[id number] PRN PRN Reason: Saline Flush Sodium Chloride () 250 mls @ 15 mls/hr IV .[id number] PRN PRN Reason: Additional IVPB Infusion Ondansetron HCl (Ondansetron 4 Mg/2 Ml Vial) 4 mg IV Q8H PRN PRN PRN Reason: NAUSEA/VOMITING Oxycodone HCl (Oxycodone 5 Mg Tablet) 5 mg PO Q4H PRN PRN PRN Reason: Pain Score 6-10 Promethazine HCl (Promethazine 25 Mg/Ml Syringe) 6.25 mg IV Q6H PRN PRN PRN Reason: NAUSEA/VOMITING Sodium Chloride (0.9% Saline Lock 10 Ml Syringe) 10 - 40 ml IV UD PRN PRN Reason: SALINE FLUSH Last Admin: 10/06/20 21:31 Dose: 10 ml Documented by: Discharge Activity: Return to Normal Activity - Encourage routine activity and movement to assist with bowel movement. Call your doctor if you observe: Fever of 101 or Higher, Inability to urinate, Inability to have a bowel movement, Shortness of breath, Dizziness, Fainting spells, Chest pain, Uncontrolled pain Home Medications: Medications to take at Discharge Psyllium [Metamucil] 1 packet PO DAILY #30 packet 10/07/20 Following Prescriptions Were Given to Patient: Psyllium [Metamucil] 1 packet PO DAILY #30 packet Transmission Status: Received by [facility]/pharmacy #[id number] Primary Care Physician: Care Physician,No Primary [Primary Care Provider] - Please follow up with your Primary Care Physician in: Please establish and follow-up with PCP within 3-5 days to review admission Please Follow Up With: Elio Suazo MD When: May contact General surgeon office if recurrent symptoms or concerns. Patient Instructions: Small Bowel Obstruction Disposition: Home Minutes spent on discharge:: 35 Patient Condition:: Fair Medical Necessity - Tobacco Use Smoking Status: Current every day smoker Tobacco Use: Cigarettes Meaningful Use Info Meaningful Use Diagnoses (Choose all that apply): None applicable Inpatient E&M: 27306 Disch Hosp
[2020-10-07] MEDS: Famotidine 20 MG Tablet PO (10:06)
== END 2020-10-07 14:40 | disposition home or self-care (01) | DRG 247 ==
LOC: ED 10-06 02:33 → MS3 10-06 03:35
PROVIDERS: Admitting Provider Hospitalist; Emergency Provider Emergency Medicine; Visit Provider Family Medicine
DX: K56.609 Unspecified intestinal obstruction, unspecified as to partial versus complete obstruction (principal); N17.9 Acute kidney failure, unspecified; E87.1 Hypo-osmolality and hyponatremia; E86.0 Dehydration; E86.1 Hypovolemia; F11.10 Opioid abuse, uncomplicated; F15.10 Other stimulant abuse, uncomplicated; F17.210 Nicotine dependence, cigarettes, uncomplicated; E43 Unspecified severe protein-calorie malnutrition; Z68.1 Body mass index [BMI] 19.9 or less, adult; Z90.2 Acquired absence of lung [part of]; Z90.81 Acquired absence of spleen
CPT/HCPCS: 36415; 36556; 71045; 74018; 74177; 76705; 80053; 80320; 81001; 83690; 84484; 85025; 87426; 93005; 97802; 99285; 99406; J7030; J7120; Q9967; A4216; C1751; G0480; J2405; J3490

== ENCOUNTER 2022-02-09 11:50 | Emergency (ER) | payer MEDICAID, SELFPAY ==
[2022-02-09 11:51] VITALS: BP 113/73; PULSE 99; RESP 14; TEMP 36.1; O2SAT 99; BMI 17.4
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
[2022-02-09 13:19] VITALS: BP 114/67; PULSE 56; RESP 14; O2SAT 98
== END 2022-02-09 13:49 | disposition home or self-care (01) ==
PROVIDERS: Emergency Provider Physician Assistant; Visit Provider Physician Assistant
DX: R51.9 Headache, unspecified (principal); S70.01XA Contusion of right hip, initial encounter; V49.40XA Driver injured in collision with unspecified motor vehicles in traffic accident, initial encounter; F17.210 Nicotine dependence, cigarettes, uncomplicated
CPT/HCPCS: 70450; 72125; 73502; 99284